=== PATIENT | female | born 1980 | race American Indian/Alaskan Native ===

== ENCOUNTER 2017-07-01 15:20 | Emergency (ER) | payer SELFPAY ==
[2017-07-01] MEDS ORDERED: Sodium Chloride 0.9% 1,000 ML IV STA (15:42)
[2017-07-01 16:00] LABS: BASO % 0.4 % (0.0-2.0); EOS % 0.3 % (0.0-4.0); HEMOGLOBIN 12.4 g/dL (11.0-16.0); LYMPH # 1.8 K/uL (1.0-4.3); LYMPH % 20.8 % (20.0-40.0); MEAN CELL VOLUME 82.2 fL (81.0-99.0); MEAN CORPUSCULAR HEMOGLOBIN 27.2 pg (27.0-31.0); MEAN PLATELET VOLUME 9.7 fL (7.2-11.7); MONO # 0.4 K/uL (0.0-0.8); MONO % 4.5 % (0.0-10.0); NEUT # 6.3 K/uL (1.8-7.0); RBC 4.56 Mil/uL (3.80-5.20); RED CELL DISTRIBUTION WIDTH 14.9 % (11.5-14.5); WHITE BLOOD COUNT 8.5 K/uL (4.8-10.8)
[2017-07-01 16:06] LABS: SQUAMOUS EPITHIAL 2 /hpf (0-5); URINE BACTERIA RARE (<OCC); URINE BILIRUBIN NEGATIVE (NEGATIVE); URINE BLOOD NEGATIVE (NEGATIVE); URINE CLARITY Clear (Clear); URINE COLOR Yellow (YELLOW); URINE GLUCOSE (UA) NORMAL (Normal); URINE LEUKOCYTE ESTERASE TRACE Leu/uL (Negative); URINE PROTEIN NEGATIVE (NEGATIVE); URINE UROBILINOGEN NORMAL mg/dL (0.2-1.0)
[2017-07-01 16:14] LABS: ALB/GLOB RATIO 1.1 (1.0-2.1); ALBUMIN 3.5 g/dL (3.5-5.0); ALT/SGPT 8 U/L (9-52); AMYLASE 87 U/L (30-110); AST/SGOT 16 U/L (14-36); BLOOD UREA NITROGEN 6 mg/dL (7-17); GFR AFRICAN-AMERICAN > 60; GFR NON-AFRICAN AMERICAN > 60; LIPASE 79 U/L (23-300)
--- NOTE | 2017-07-01 16:59 | US ---
EXAM: US Uterus, Limited EXAM DATE/TIME: Exam ordered 07/01/2017 3:42 PM CLINICAL HISTORY: 36 years old, female; Signs and symptoms; Lmp or gestational age (in weeks): 1-1-18; Other: Vomiting; ; Additional info: Vomiting/dizzy TECHNIQUE: Real-time ultrasound of the maternal uterus (limited) with image documentation. COMPARISON: No relevant prior studies available. FINDINGS: Biometry BPD = [3.74 cm]; Estimated Menstrual Age = [17 w 3 d]; Range = [16 W2D-18 W4D] HC = [13.8 cm]; Estimated Menstrual Age = [17 w 2 d]; Range = [16 W8N-95M6H] AC = [11.45cm]; Estimated Menstrual Age = [17w 2d]; Range = [15 W4D-18 W6D] FL = [2.47 cm]; Estimated Menstrual Age = [17 w 3 d]; Range = [16 W1D-18 W6D] HC/AC Ratio = [1.21] normal 1.07-1.28 EFW = 191 g plus or -28.61 g (7 ounces plus or minus one ounce) 83rd percentile Presentation: Breech Cervix: Closed and 4.44 cm in length Placenta: Posterior and fundal Amniotic fluid volume: Qualitatively normal HR =[143 bpm] Survey: Not performed IMPRESSION: 1. Single live intrauterine with an estimated menstrual age of 17 weeks and 3 days plus or -1 week and 2 days. Expected date of confinement 12/06/2017. 2. survey was not performed.
[2017-07-01] MEDS ORDERED: Potassium Chloride 20 mEq ER Tab PO STA (17:17)
--- NOTE | 2017-07-01 17:50 | C.PDOC ---
History Of Present Illness 36 y/o female, , presents to the ER complaining of vomiting and dizziness which has been present for the past 3 days. Patient states that she is 17 weeks . Patient denies having abdominal pain and vaginal bleeding. Time Seen by Provider: 07/01/17 15:22 Chief Complaint (Nursing): GI Problem History Per: Patient History/Exam Limitations: no limitations Onset/Duration Of Symptoms: Days Current Symptoms Are (Timing): Still Present Severity: Moderate Past Medical History Reviewed: Historical Data, Nursing Documentation, Vital Signs Vital Signs: Last Vital Signs Temp 98 F 07/01/17 18:38 Pulse 78 07/01/17 18:38 Resp 18 07/01/17 18:38 BP 126/76 07/01/17 18:38 Pulse Ox 100 07/01/17 18:46 - Medical History PMH: No Chronic Diseases Surgical History: No Surg Hx Family History: States: No Known Family Hx - Social History Hx Alcohol Use: No Hx Substance Use: No - Immunization History Hx Tetanus Toxoid Vaccination: No Hx Influenza Vaccination: No Hx Pneumococcal Vaccination: No Review Of Systems Except As Marked, All Systems Reviewed And Found Negative. Constitutional: Negative for: Fever, Chills Gastrointestinal: Positive for: Vomiting. Negative for: Abdominal Pain Genitourinary: Negative for: Vaginal Bleeding Neurological: Positive for: Dizziness Physical Exam - Physical Exam Appears: Non-toxic, No Acute Distress Skin: Normal Color, Warm Head: Atraumatic, Normacephalic Eye(s): bilateral: Normal Inspection Nose: Normal Oral Mucosa: Moist Neck: Supple Chest: Symmetrical Cardiovascular: Rhythm Regular Respiratory: Normal Breath Sounds, No Rales, No Rhonchi, No Wheezing Gastrointestinal/Abdominal: Soft, Tenderness (suprapubic tenderness), Other ( uterus size is midway between pubic region and umbilicus) Extremity: Normal ROM Neurological/Psych: Oriented x3, Normal Speech ED Course And Treatment - Laboratory Results Result Diagrams: 07/01/17 15:50 07/01/17 15:50 O2 Sat by Pulse Oximetry: 100 (RA) Pulse Ox Interpretation: Normal - CT Scan/US US- Obstretics Other Rad Studies (CT/US): Read By Radiologist, Radiology Report Reviewed CT/US Interpretation: Ultrasound. . . OB , LIMITED Exam Date: 07/01/17. . This imaging exam was performed at [facility]. EXAM: US Uterus, Limited. . EXAM DATE/TIME: Exam ordered 07/01/2017 3:42 PM. . CLINICAL HISTORY: 36 years old, female; Signs and symptoms; Lmp or gestational age (in weeks): 1-1-18; Other: Vomiting; ; Additional info: Vomiting/dizzy. . TECHNIQUE: Real-time ultrasound of the maternal uterus (limited) with image. documentation. . COMPARISON: No relevant prior studies available. . FINDINGS: Biometry. . BPD = [3.74 cm]; Estimated Menstrual Age = [17 w 3 d]; Range = [ 16 W2D-18 W4D]. HC = [13.8 cm]; Estimated Menstrual Age = [17 w 2 d]; Range = [ 16 [id number]-[id number]]. AC = [11.45cm]; Estimated Menstrual Age = [17w 2d]; Range = [15 W4D-18 W6D]. FL = [2.47 cm]; Estimated Menstrual Age = [17 w 3 d]; Range = [16 W1D-18 W6D]. . HC/AC Ratio = [1.21] normal 1.07-1.28. . EFW = 191 g plus or -28.61 g (7 ounces plus or minus one ounce) 83rd percentile. . Presentation: Breech. . Cervix: Closed and 4.44 cm in length. . Placenta: Posterior and fundal. . Amniotic fluid volume: Qualitatively normal. . HR =[143 bpm]. . Survey: Not performed. . . IMPRESSION: 1. Single live intrauterine with an estimated menstrual age of 17. weeks and 3 days plus or -1 week and 2 days. Expected date of confinement. 12/06/2017. . 2. survey was not performed. Progress Note: Labs, UA, and Obstretics US ordered. Patient is hypokalemic. Patient has been given IV Fluids, Zofran IV, and Potassium Chloride PO. On re- evaluation patient feels better, tolerates po and is stable to be d/c home with OBGYN follow up within 2-3 days. Disposition - Disposition Disposition: HOME/ ROUTINE Disposition Time: 18:44 Condition: IMPROVED Additional Instructions: Follow up with PMD and OBGYN within 1-2 days. Return to ED if feel worse. Prescriptions: Ondansetron ODT [Zofran ODT] 4 mg PO .Q4-6H PRN #20 odt PRN Reason: Nausea/Vomiting Instructions: Nausea and Vomiting of (DC) Forms: [employer] (I[place]ic) - Clinical Impression Clinical Impression: Nausea/vomiting in - PA / PERSONAL INJURY LITIGATION PAR[place]GAL / Resident Statement MD/DO has reviewed & agrees with the documentation as recorded. - Scribe Statement The provider has reviewed the documentation as recorded by the Dimple Willett Provider Attestation All medical record entries made by the Dimple were at my direction and personally dictated by me. I have reviewed the chart and agree that the record accurately reflects my personal performance of the history, physical exam, medical decision making, and the department course for this patient. I have also personally directed, reviewed, and agree with the discharge instructions and disposition.
[2017-07-01] MEDS ORDERED: Potassium Chloride 20 mEq ER Tab PO ONE (18:07)
[2017-07-01 18:39] VITALS: BP 126/76; PULSE 78; RESP 18; TEMP 98
[2017-07-01 18:46] VITALS: O2SAT 100
== END 2017-07-01 18:52 | disposition home or self-care (01) ==
LOC: C.ER 15:20
DX: O21.9 Vomiting of pregnancy, unspecified (principal); Z3A.17 17 weeks gestation of pregnancy
CPT/HCPCS: 76815; 80053; 81001; 82150; 83690; 85025; 96374; 99285; J2405; J7040